=== PATIENT | male | born 1965 | race Caucasian/White ===

== ENCOUNTER → 2017-03-24 | Outpatient (CLI) | payer OTHER ==
[~2017-03-24] MED LIST: FLEXERIL PO; FLOMAX0.4 M1 PO; LISINOPRIL; MEDROL PO; PERCOCET5/325 PO; PHENERGAN12.5 M1 PO; VICODIN ES 7.51 EACH PO
--- NOTE | ~2017-03-24 | EKG ---
PATIENT: GLENDA WELLS UNIT #: [id number] Ventricular Rate: 69 BPM Atrial Rate: 69 BPM P-R Interval: 160 ms QRS Duration: 84 ms Q-T Interval: 384 ms QTC Calculation(Bezet): 411 ms P Lud[place]: 65 degrees Calculated R [place]: 56 degrees Calculated T Lud[place]: 56 degrees Diagnosis Line: Normal sinus rhythm with sinus arrhythmia Diagnosis Line: Early R Wave Transition Diagnosis Line: Borderline ECG Diagnosis Line: No previous ECGs available Diagnosis Line: Confirmed by ELIZABETH CONLKIN MD ([id number]) on Diagnosis Line: 03/26/2017 10:03:37 AM INTERPRETING MDAna GRAY
[2017-03-24 08:41] LABS: HEMATOCRIT 44.8 % (38.0-50.0); HEMOGLOBIN 14.9 gm/dL (13.0-16.0); MEAN CELL VOLUME 92.4 FL (83-96); MEAN CORPUSCULAR HEMOGLOBIN 30.8 PG (28-34); MEAN CORPUSCULAR HGB CONC 33.3 g/dL (30-36); MEAN PLATELET VOLUME 9.3 FL (6.5-11.5); RED BLOOD COUNT 4.85 X10e (3.90-5.60); RED CELL DISTRIBUTION WIDTH 13.6 % (11.0-15.5); WHITE BLOOD COUNT 8.3 X10e3 (4.0-10.5)
[2017-03-24 09:08] LABS: BUN/CREATININE RATIO 23.63; CALCIUM SERUM 9.3 mg/dL (8.4-10.2); CREATININE SERUM 1.1 mg/dL (0.6-1.4); GLOM FILT RATE Estimated 76.3 mL/min (>60); POTASSIUM 5.4 mmol/L (3.5-5.1)
== END | disposition home or self-care (01) ==
LOC: CLAB 08:14
PROVIDERS: Orthopaedic Surgery
DX: Z01.818 Encounter for other preprocedural examination (principal); S43.409A Unspecified sprain of unspecified shoulder joint, initial encounter
CPT/HCPCS: 36415; 80048; 85027; 93005

== ENCOUNTER 2017-06-03 08:54 | Emergency (ER) | payer OTHER ==
--- NOTE | ~2017-06-03 | CT57 ---
[facility] A Service of [facility] & [facility] RADIOLOGY TEXT RESULTS PATIENT: GLENDA WELLS LOCATION: SED : 61 UNIT #: [id number] AGE: [address]: Aditya Sesay MD SEX: M ORDER DR: [id number] [place] [id number] E MR#: [id number] Acc #: [id number] NAME: GLENDA WELLS : 1965 SEX: M STUDY DATE/TIME: 06/03/2017 9:28 UNIT: SED ROOM: STUDY DESCRIPTION: CT Chest Wo Cont Attending Physician: Aditya Sesay M.D. Ordering Physician: Aditya Sesay M.D. Primary Care Physician: Raghu Richard M.D. MEDICAL IMAGING REPORT This report is preliminary unless electronic signature is present. EXAM CT chest without contrast, 06/03/2017. HISTORY Fell on , 05/29/2017 on back. Left posterior rib pain low back pain. TECHNIQUE CT of the chest performed without administration of intravenous contrast. Study limited in the absence of intravascular contrast. This CT exam was performed with one or more of the following radiation dose reduction techniques: automatic exposure control, adjustment of mA and/or kV according to patient size, and iterative reconstruction. COMPARISON No prior dedicated CTs of the chest for comparison. There are limited views of the lower thorax from CT abdomen and pelvis dated 11/23/2012. FINDINGS The thyroid is unremarkable. No axillary adenopathy. No mediastinal or hilar adenopathy. The heart is normal in size. No pleural effusions. Visualized portions of the liver, gallbladder, spleen, pancreas, adrenal glands, kidneys unremarkable. Esophagus, stomach, visualized small bowel and colon unremarkable. Pulmonary parenchyma shows evidence of underlying centrilobular emphysema. Faint 5 mm right upper lobe noncalcified pulmonary nodule. 9-10 mm pulmonary nodule at the right lung base immediately adjacent to the diaphragm. Calcified granuloma anteromedial left upper lobe, patchy and linear densities in the dependent lungs bilaterally, left greater than right, likely representing atelectasis. There is no dense airspace disease. There is no pneumothorax. Unopacified vascular structures notable for atherosclerotic arterial calcifications. Particularly prominent in the visualized proximal right renal artery. The bony structures show complete nondisplaced fracture posterior left tenth rib. Hairline possibly incomplete fracture posterior STS. [facility] A Service of [facility] RADIOLOGY TEXT RESULTS PATIENT: GLENDA WELLS LOCATION: [facility] [place] 61 UNIT #: [id number] AGE: [address]: Aditya Sesay MD SEX: M ORDER DR: left 11th rib. No other definite rib fractures. The spine shows degenerative change but no acute-appearing bony abnormality in the spine. No significant overlying body wall soft tissue abnormality inside of the rib fractures. IMPRESSION 1. Nondisplaced complete posterior left tenth rib fracture. Probable incomplete posterior left 11th rib fracture. Degenerative changes in the spine. No acute-appearing spine abnormality. 2. There is no significant soft tissue body wall traumatic abnormality. 3. Emphysema. Dependent atelectasis in the lungs more pronounced on the left in the region of the above described rib fractures. There is no dense airspace disease, pleural effusion or pneumothorax. 4. 5 mm noncalcified nodule right upper lobe. In the absence of prior studies demonstrating prolonged stability, 6-month CT follow up would be recommended given the patient's underlying emphysema. 5. A 9-10 mm noncalcified nodule at the right lung base is unchanged from October 2012, and therefore felt to be benign in nature. 6. No acute-appearing abnormality in the upper abdomen. Dictated by... Wilfredo Hendrix M.D. THIS IS AN ELECTRONICALLY VERIFIED REPORT Wilfredo Hendrix M.D. at 06/03/2017 6:15 PM David TD: 06/03/2017 15:34 JOB #: [id number] MEDICAL IMAGING REPORT Page 1 of 1
--- NOTE | ~2017-06-03 | CT98 ---
[facility] A Service [facility] RADIOLOGY TEXT RESULTS PATIENT: GLENDA WELLS LOCATION: SED : 61 UNIT #: [id number] AGE: [address]: Aditya Sesay MD SEX: M ORDER DR: [id number] [place] [id number] E MR#: [id number] Acc #: [id number] NAME: GLENDA WELLS : 1965 SEX: M STUDY DATE/TIME: 06/03/2017 9:28 UNIT: SED ROOM: STUDY DESCRIPTION: CT Lumbar Spine Wo Cont Attending Physician: Aditya Sesay M.D. Ordering Physician: Aditya Sesay M.D. Primary Care Physician: Raghu Richard M.D. MEDICAL IMAGING REPORT This report is preliminary unless electronic signature is present. EXAM Lumbar spine CT scan without contrast INDICATION Low back pain since Tuesday. COMPARISON 11/23/2009 TECHNIQUE Axial 2 mm images were obtained from T11-S1 and sagittal and coronal reconstructions were generated. This CT exam was performed with one or more of the following radiation dose reduction techniques: Automatic exposure control, adjustment of mA and/or kV according to patient size, and iterative reconstruction. FINDINGS The vertebral bodies have a normal alignment. There is disc space narrowing at T11-12 and T12-L1 and L1-2 and L4-5. There is a generalized disc bulge at L4-5which is fairly pronounced and this causes mild spinal stenosis. This is new from 2009. IMPRESSION 1. Mild degenerative disc narrowing at multiple levels. There is a [id number] generalized disc bulge at L4-5 causing some bilateral neural foraminal narrowing and mild spinal stenosis and this is new from 11/23/2009. Otherwise, the study is normal. Dictated by... [facility] A Service [facility] RADIOLOGY TEXT RESULTS PATIENT: GLENDA WELLS LOCATION: SED : 61 UNIT #: [id number] AGE: [address]: Aditya Sesay MD SEX: M ORDER DR: Aditya Quinn M.D. THIS IS AN ELECTRONICALLY VERIFIED REPORT Aditya Quinn M.D. at 06/03/2017 3:24 PM JEF/yany TD: 06/03/2017 14:45 JOB #: [id number] MEDICAL IMAGING REPORT Page 1 of 1
[~2017-06-03 08:54] MED LIST changes: -LISINOPRIL
[2017-06-03] MEDS ORDERED: LISINOPRIL (09:05)
== END 2017-06-03 10:50 | disposition home or self-care (01) ==
LOC: SED 08:54
DX: S22.42XA Multiple fractures of ribs, left side, initial encounter for closed fracture (principal); S39.012A Strain of muscle, fascia and tendon of lower back, initial encounter; I10 Essential (primary) hypertension; K21.9 Gastro-esophageal reflux disease without esophagitis; F17.210 Nicotine dependence, cigarettes, uncomplicated; W10.9XXA Fall (on) (from) unspecified stairs and steps, initial encounter; Y92.009 Unspecified place in unspecified non-institutional (private) residence as the place of occurrence of the external cause
CPT/HCPCS: 71250; 72131; 96372; 99283; J1170; J2550